=== PATIENT | female | born 1980 | race Caucasian/White ===

== ENCOUNTER 2018-01-30 07:56 | Emergency (ER) | payer OTHER ==
[2018-01-30] MEDS ORDERED: Lidocaine 5% Patch TD ONE (08:50)
--- NOTE | 2018-01-30 08:57 | ED PDOC ---
HPI: Back Time Seen by Provider: 01/30/18 08:34 Chief Complaint (Nursing): Back Pain Additional Complaint(s): 37 yo female patient presenting to the ED c/o worsening lower back pain in the R side. Patient states the pain started 1 month ago, and has been worsening in the last few days, pain is sharp, 8/10, radiated to the R leg. 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 No alleviating factors, has been taking ibuprofen at home w/o relief. She denies F/N/V, falls, also denies T/N/W, no urinary symptoms or changes in BM. She endorses has hx of seizures as a kid, no taking any meds for that at this time. Past Medical History Vital Signs: Last Vital Signs Temp 98.1 F 01/30/18 08:06 Pulse 78 01/30/18 08:06 Resp 17 01/30/18 08:06 BP 129/75 01/30/18 08:06 Pulse Ox 98 01/30/18 08:06 - Medical History PMH: Seizures (childhood seizures) - Surgical History Other surgeries: BTL - Family History Family History: States: No Known Family Hx - Social History Current smoker - smoking cessation education provided: No Ex-Smoker (has not smoked in the last 12 months): No Alcohol: None Drugs: Denies - Home Medications Home Medications: Ambulatory Orders Medication Instructions Recorded Ibuprofen [Motrin] 600 mg PO TID 7 Days tab 01/30/18 Lidocaine 5% [Lidoderm] 1 ea TD DAILY PRN #5 patch 01/30/18 - Allergies Allergies/Adverse Reactions: Allergies Allergy/AdvReac Type Severity Reaction Status Date / Time No Known Allergies Allergy Verified 01/30/18 08:47 Physical Exam - Physical Exam Appears: Positive for: No Acute Distress Head Exam: Positive for: NORMAL INSPECTION Eye Exam: Positive for: EOMI Neck: Positive for: Normal, Supple Cardiovascular/Chest: Positive for: Regular Rate, Rhythm. Negative for: Tachycardia Respiratory: Positive for: Normal Breath Sounds. Negative for: Rales, Wheezing Gastrointestinal/Abdominal: Positive for: Soft. Negative for: Tenderness, Distended Back: Positive for: Other (tenderness in R lower side, preserved ROM, straight rise negative b/l). Negative for: L CVA Tenderness, R CVA Tenderness, Vertebral Tenderness Neurologic/Psych: Positive for: Alert, polish compounder II-XII, Oriented - ECG O2 Sat by Pulse Oximetry: 98 Medical Decision Making Medical Decision Makin yo female presenting to the ED with R side lower back pain radiated to R leg, likely sciatic. Plan: - Urine BHCG - lumbar x ray - Ibuprofen 600mg once - Lidoderm 1 patch once 926 reeval: patient feels better, pain improved Lumbar X ray: negative for compression or fractures, will discharge home with instructions to f/u with PCP in 2-3 days. Disposition - Clinical Impression Clinical Impression: Low back pain - Patient ED Disposition Is Patient to be Admitted: No - Disposition Referrals: [facility] [Outside] - 01/31/18 Disposition: Routine/Home Disposition Time: 09:52 Condition: STABLE Additional Instructions: Return if not better in 3 days. Prescriptions: Ibuprofen [Motrin] 600 mg PO TID 7 Days tab Lidocaine 5% [Lidoderm] 1 ea TD DAILY PRN #5 patch PRN Reason: Pain, Moderate (4-7) Instructions: Low Back Pain in Adults Forms: [facility] (Tongan), [facility] School/Work Excuse
[2018-01-30 09:59] VITALS: BP 116/72; PULSE 63; RESP 16; TEMP 97.8; O2SAT 97
--- NOTE | 2018-01-30 12:11 | RAD ---
Date of service: 01/30/2018 PROCEDURE: Radiographs of the Lumbar Spine. HISTORY: lower back pain COMPARISON: No prior. FINDINGS: BONES: Normal alignment. No listhesis. No fracture. DISC SPACES: Unremarkable. OTHER FINDINGS: None. IMPRESSION: Unremarkable radiographs of the lumbar spine.
== END 2018-01-30 10:00 | disposition home or self-care (01) ==
LOC: H.ER 07:56
DX: M54.5 Low back pain (principal); R56.9 Unspecified convulsions; Z87.891 Personal history of nicotine dependence